=== PATIENT | male | born 1970 | race Caucasian/White ===

== ENCOUNTER 2017-11-17 07:16 | Inpatient (IN) | payer OTHER ==
[~2017-11-17] VITALS: Ht 182.9 cm; Wt 88.0 kg
[~2017-11-17 07:16] MED LIST: ACYCLOVIR 400400 M1 PO; ACYCLOVIR 400400 MG PO; AMOXICILLIN 50500 MG PO; BACTRIM; BACTRIM DS TAB1 EACH PO; CIPROFLOXACIN500 M1 PO; DOXYCYCLINE 10100 MG PO; IBUPROFEN 800800 MG PO; KEFLEX500 MG PO; NOHOMEMEDICATIONS; NORCO 5-325 TA1 EACH; NORCO 5-325 TA1 EACH PO; NORCO 7.5-3251 EACH PO; PERCOCET 5-3251 EACH PO; TRAMADOL 50 MG50 MG PO; VICODIN 5-5001 EACH PO; ZOVIRAX 5% CR2 G1 TP
[2017-11-17 07:44] VITALS: BP 117/74
[2017-11-17 08:04] LABS: INFLUENZA A ANTIGEN None Detected (None Detect); INFLUENZA B ANTIGEN None Detected (None Detect)
[2017-11-17 08:11] LABS: HEMOGLOBIN 16.3 gm/dL (14.0-18.0); MCHC 33.7 g/dL (28.0-37.0)
[2017-11-17 08:13] LABS: HEMATOCRIT 48.4 % (42.0-52.0); MCH 30.4 pg (26.0-34.0); MCV 90.2 fL (80.0-100.0); MPV 9.4 fl. (7.2-11.1); NUCLEATED RBCS 0 /100WBC; PLATELET COUNT* 144 thou/uL (150-400); RBC 5.36 mil/uL (4.50-6.00); RDW-CV 14.5 % (10.5-14.5); WBC 10.9 thou/uL (4.0-11.0)
[2017-11-17 08:19] LABS: CALCIUM 8.3 mg/dL (8.5-10.1); CREATININE 1.6 mg/dL (0.6-1.3); POTASSIUM 4.1 mmol/L (3.5-5.1)
[2017-11-17 08:23] LABS: ALBUMIN 3.1 g/dL (3.4-5.0); TOTAL PROTEIN 7.8 g/dL (6.4-8.2)
[2017-11-17 08:58] LABS: ABSOLUTE LYMPHOCYTES 0.4 thou/uL (0.8-5.3); ABSOLUTE MONOCYTES 0.2 thou/uL (0.0-1.2); ABSOLUTE NEUTROPHILS 10.2 thou/uL (1.6-8.1); PLATELET ESTIMATE ADEQUATE
--- NOTE | 2017-11-17 11:00 | NUR ---
PT GIVEN A SANDWICH AND APPLE JUICE. PT FINISHED FOOD AND IS NOW SLEEPING IN ROOM.
[2017-11-17 14:45] VITALS: BP 93/66
--- NOTE | 2017-11-17 15:21 | NUR ---
UNABLE TO COMPLETE BOARDED PT ASSESSMENT ON TIME DUE TO HIGH ACUITY OF OTHER PATIENTS.
[2017-11-17 16:25] LABS: AMP/METHAMP POSITIVE (Negative); BARBITURATES Negative (Negative); BENZODIAZEPINES Negative (Negative); COCAINE Negative (Negative); METHADONE Negative (Negative); OPIATES Negative (Negative); PCP Negative (Negative); THC POSITIVE (Negative)
[2017-11-17 16:30] LABS: URINE BLOOD NEGATIVE (Negative); URINE CLARITY CLOUDY; URINE COLOR YELLOW; URINE GLUCOSE-RANDOM NEGATIVE (Negative); URINE KETONES TRACE (Negative); URINE LEUKOCYTES-REFLEX NEGATIVE (Negative); URINE NITRITE-REFLEX NEGATIVE (Negative); URINE PROTEIN 1+ (Negative); URINE SPECIFIC GRAVITY >= 1.030 (1.005-1.030)
[2017-11-17 16:32] LABS: ICTOTEST (BILI CONFIRMATORY) Negative (Negative); URINE BILIRUBIN 2+ (Negative)
--- NOTE | 2017-11-17 17:00 | NUR ---
NOTIFIED DR ROGERS OF VQ RESULTS.
[2017-11-17 17:52] VITALS: BP 104/71
[2017-11-17 18:46] VITALS: BP 108/68
[2017-11-17 19:45] VITALS: BP 119/73
--- NOTE | 2017-11-17 20:00 | NUR ---
PT IN BED WATCHING TV. 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 VS OBTAINED, AFEBRILE. ROOM AIR SAT 94%. LIJ IVF INFUSING PER PUMP. HISTORY OBTIANED AND ASSESSMENT PERFORMED, SEE ADMIT NOTES. REFUSING SCDS. DR TO BE MESSAGED REGARDING VQ SCAN FINDINGS. SNACK GIVEN. CALL LITE IN EASY REACH, WILL CONTINUE TO MONITOR AND PROVIDE CARES NEEDED.
[2017-11-18] VITALS: BP 123/81
[2017-11-18 04:00] VITALS: BP 118/88
--- NOTE | 2017-11-18 07:03 | NUR ---
PT SLEPT WELL OVERNIGHT HE STATES, FEELING MUCH BETTER. PRODUCTIVE COUGH LEDBETTER THICK MUCOUS THIS MORNING, SPECIMEN OBTAINED TO SEND TO LAB. LIJ IVF INFUSED OVERNIGHT. DENIES PAIN OR PROBLEMS, ROOM AIR. NASAL SWAB MRSA SENT TO LAB PENDING, HX MRSA. SOLUMEDROL GIVEN ORDERED. RT TX GIVEN. LOVENOX GIVEN ORDERED. USING URINAL TO VOID TORI URINE. ABLE TO USE CALL LITE AND MAKE NEEDS KNOWN.
[2017-11-18 08:00] VITALS: BP 146/99
--- NOTE | 2017-11-18 10:11 | NUR ---
CM SPOKE TO THE PATIENT TO DISCUSS HOME SITUATIION, DISCHARGE PLANNING, AND TO INFORM OF THE ROLE OF CM. PATIENT ALERT, ORIENTED, AND INDEPENDENT WITH ADL'S. PATIENT IS HOMELESS. PATIENT STATES THAT HE STAYS 'WHERE EVER HE CAN'. PATIENT STATES THAT HE HAS 'SOME FRIENDS WHO HELP ME WHEN I NEED IT'. PATIENT OWNS 0 DME. PATIENT HAS NO HX OF HH OR SNF. PATIENT REQUEST ASSISTANCE WITH APPLYING FOR MEDICAID. CM CONTACTED [employer] AND A MESSAGE FOR [employer], AND FAXED HER THE PATIENTS FACESHEET. CM PROVIDED PATIENT A COMMUNITY RESOURCE LIST, PRESCRIPTION ASSSITANCE CARD, AND LIST OF SUBSTANCE ABUSE RESOURCES. CM WILL REMAIN AVAILABLE TO ASSIST AND FOLLOW NEEDED.
[2017-11-18 10:30] LABS: HEMATOCRIT 40.2 % (42.0-52.0); MCH 29.9 pg (26.0-34.0); MCHC 32.8 g/dL (28.0-37.0); MCV 91.2 fL (80.0-100.0); MPV 9.4 fl. (7.2-11.1); NUCLEATED RBCS 0 /100WBC; PLATELET COUNT* 121 thou/uL (150-400); RBC 4.41 mil/uL (4.50-6.00); RDW-CV 14.5 % (10.5-14.5); WBC 16.3 thou/uL (4.0-11.0)
[2017-11-18 10:32] LABS: HEMOGLOBIN 13.2 gm/dL (14.0-18.0)
[2017-11-18 10:44] LABS: CALCIUM 8.2 mg/dL (8.5-10.1); CREATININE 1.2 mg/dL (0.6-1.3); MAGNESIUM 1.5 mg/dL (1.8-2.4); PHOSPHORUS* 2.1 mg/dL (2.5-4.9)
[2017-11-18 10:56] LABS: ABSOLUTE LYMPHOCYTES 0.8 thou/uL (0.8-5.3); ABSOLUTE MONOCYTES 0.7 thou/uL (0.0-1.2); ABSOLUTE NEUTROPHILS 14.8 thou/uL (1.6-8.1); METAMYELOCYTES 1 %
[2017-11-18 10:57] LABS: HYPOCHROMASIA 1+; PLATELET ESTIMATE ADEQUATE
[2017-11-18 12:35] VITALS: BP 136/93
[2017-11-18] MEDS ORDERED: PRILOSEC 20 MG20 MG PO (13:08)
[2017-11-18] MEDS ORDERED: NICOTINE TRANSD21 M1 TRANSDERM (13:09)
[2017-11-18] MEDS ORDERED: LEVAQUIN 750 M750 MG PO (13:10)
[2017-11-18] MEDS ORDERED: PREDNISONE 10 M10 MG PO (13:18)
[2017-11-18 13:57] VITALS: BP 136/93
--- NOTE | 2017-11-18 14:28 | NUR ---
ASSUMED CARE THIS AM. A/O X 4, DENIES PAIN, UP AD GOLDEN. VITAL SIGNS STABLE, LABS REVIEWED WITH PATIENT AND PHYSICIAN. PATIENT ADAMANT ABOUT BEING DISCHARGED TODAY, INFORMED OF RISK BY THIS NURSE AND PHYSICIAN. DISCHARGE INSTRUCTIONS AND PRESCRIPTIONS DISCUSSED WITH AND GIVEN TO PATIENT, DENIES QUESTIONS AT THIS TIME. IV ACCESS TO LEFT EJ REMOVED WITHOUT INCIDENT, PERSONAL EFFECTS GATHERED AND ACCOUNTED FOR, IN COMPANY OF PATIENT. AMBULATED WITH STEADY GAIT TO MAIN ENTRANCE IN COMPANY OF THIS NURSE.
== END 2017-11-18 14:32 | disposition left against medical advice (07) | DRG 871 ==
LOC: M.ERS 07:16 → M.3W 09:43 → M.TBA-ER 09:43 → M.3W 18:15
PROVIDERS: Emergency Medicine Emergency Medical Services; ADMIT Internal Medicine
DX: A41.9 Sepsis, unspecified organism (principal); J96.01 Acute respiratory failure with hypoxia; J15.6 Pneumonia due to other Gram-negative bacteria; F17.210 Nicotine dependence, cigarettes, uncomplicated; F19.90 Other psychoactive substance use, unspecified, uncomplicated; Z88.2 Allergy status to sulfonamides; Z88.1 Allergy status to other antibiotic agents; Z79.899 Other long term (current) drug therapy; Z71.6 Tobacco abuse counseling; Z28.21 Immunization not carried out because of patient refusal

== ENCOUNTER 2018-02-12 11:25 | Emergency (ER) | payer OTHER ==
[~2018-02-12] VITALS: Ht 182.9 cm; Wt 90.7 kg
[~2018-02-12 11:25] MED LIST changes: +LEVAQUIN 750 M750 MG PO; +NICOTINE TRANSD21 M1 TRANSDERM; +PREDNISONE 10 M10 MG PO; +PRILOSEC 20 MG20 MG PO
[2018-02-12] MEDS ORDERED: PERCOCET PO ×2 (13:01→13:10)
[2018-02-12] MEDS ORDERED: ZPAK PO (13:25)
[2018-02-12] MEDS ORDERED: PROAIR HFA8.5 GM INH (13:25)
[2018-02-12 13:40] VITALS: BP 130/94
== END 2018-02-12 13:40 | disposition home or self-care (01) ==
LOC: M.ERS 11:25
DX: S22.41XA Multiple fractures of ribs, right side, initial encounter for closed fracture (principal); F17.210 Nicotine dependence, cigarettes, uncomplicated; Z88.1 Allergy status to other antibiotic agents; W18.39XA Other fall on same level, initial encounter; Y93.89 Activity, other specified; Y92.89 Other specified places as the place of occurrence of the external cause; Y99.8 Other external cause status

== ENCOUNTER 2019-09-30 04:14 | Emergency (ER) | payer OTHER ==
[~2019-09-30] VITALS: Ht 182.9 cm; Wt 90.7 kg
[~2019-09-30 04:14] MED LIST changes: +PERCOCET PO; +PROAIR HFA8.5 GM INH; +ZPAK PO
[2019-09-30] MEDS ORDERED: LISINOPRIL-HCT1 EAC2 PO (04:23)
[2019-09-30] MEDS ORDERED: LASIX 40 MG TAB40 MG PO (04:23)
[2019-09-30] MEDS ORDERED: DOXYCYCLINE 10100 MG PO (04:38)
[2019-09-30] MEDS ORDERED: TYLENOL WITH CO1 TA1 PO (04:38)
[2019-09-30 04:41] VITALS: BP 151/100
== END 2019-09-30 04:42 | disposition home or self-care (01) ==
LOC: M.ERS 04:14
DX: S61.011A Laceration without foreign body of right thumb without damage to nail, initial encounter (principal); L03.031 Cellulitis of right toe; F17.210 Nicotine dependence, cigarettes, uncomplicated; Z88.2 Allergy status to sulfonamides; Z88.8 Allergy status to other drugs, medicaments and biological substances; X58.XXXA Exposure to other specified factors, initial encounter; Y92.89 Other specified places as the place of occurrence of the external cause; Y93.89 Activity, other specified; Y99.0 Civilian activity done for income or pay

== ENCOUNTER 2019-10-04 19:13 | Emergency (ER) | payer OTHER ==
[~2019-10-04] VITALS: Ht 182.9 cm; Wt 90.7 kg
[~2019-10-04 19:13] MED LIST changes: +LASIX 40 MG TAB40 MG PO; +LISINOPRIL-HCT1 EAC2 PO; +TYLENOL WITH CO1 TA1 PO
[2019-10-04 20:36] LABS: ABSOLUTE BASOPHILS 0.2 thou/uL (0.0-0.2); ABSOLUTE EOSINOPHILS 0.1 thou/uL (0.0-0.7); ABSOLUTE LYMPHOCYTES 2.7 thou/uL (0.8-5.3); ABSOLUTE MONOCYTES 1.1 thou/uL (0.0-1.2); ABSOLUTE NEUTROPHILS 11.1 thou/uL (1.6-8.1); BASOPHILS 1.1 %; EOSINOPHILS 0.8 %; HEMATOCRIT 51.3 % (42.0-52.0); HEMOGLOBIN 17.2 gm/dL (14.0-18.0); LYMPHOCYTES 17.7 %; MCH 30.5 pg (26.0-34.0); MCHC 33.5 g/dL (28.0-37.0); MCV 91.3 fL (80.0-100.0); MONOCYTES 7.1 %; MPV 8.5 fl. (7.2-11.1); NUCLEATED RBCS 0 /100WBC; PLATELET COUNT* 228 thou/uL (150-400); POLYS 73.3 %; RBC 5.62 mil/uL (4.50-6.00); RDW-CV 14.5 % (10.5-14.5); WBC 15.2 thou/uL (4.0-11.0)
[2019-10-04 20:46] LABS: CREATININE 1.3 mg/dL (0.6-1.3); POTASSIUM 3.8 mmol/L (3.5-5.1)
[2019-10-04] MEDS ORDERED: IBU600 MG PO (21:11)
[2019-10-04] MEDS ORDERED: CLEOCIN HCL150 M1 PO (21:11)
[2019-10-04] MEDS ORDERED: ULTRAM 50MG TAB50 MG PO (21:27)
[2019-10-04 21:35] VITALS: BP 192/97
== END 2019-10-04 21:36 | disposition home or self-care (01) ==
LOC: M.ERS 19:13
PROVIDERS: Physician Assistant
DX: L02.511 Cutaneous abscess of right hand (principal); L03.011 Cellulitis of right finger; I10 Essential (primary) hypertension; F17.210 Nicotine dependence, cigarettes, uncomplicated; Z88.1 Allergy status to other antibiotic agents; Z88.2 Allergy status to sulfonamides; Z87.01 Personal history of pneumonia (recurrent)

== ENCOUNTER 2020-07-27 18:18 | Emergency (ER) | payer OTHER ==
[~2020-07-27] VITALS: Ht 182.9 cm; Wt 90.7 kg
[~2020-07-27 18:18] MED LIST changes: +CLEOCIN HCL150 M1 PO; +IBU600 MG PO; +ULTRAM 50MG TAB50 MG PO
[2020-07-27] MEDS ORDERED: SPIRONOLACTONE25 MG PO (18:37)
[2020-07-27] MEDS ORDERED: VENTOLIN HFA 1818 GM INH (18:37)
[2020-07-27] MEDS ORDERED: CARVEDILOL3.125 MG PO (18:38)
[2020-07-27 20:42] LABS: HEMATOCRIT 50.8 % (42.0-52.0); NUCLEATED RBCS 0 /100WBC
[2020-07-27 20:44] LABS: ABSOLUTE BASOPHILS 0.1 thou/uL (0.0-0.2); ABSOLUTE EOSINOPHILS 0.1 thou/uL (0.0-0.7); ABSOLUTE LYMPHOCYTES 2.6 thou/uL (0.8-5.3); ABSOLUTE MONOCYTES 1.4 thou/uL (0.0-1.2); ABSOLUTE NEUTROPHILS 10.4 thou/uL (1.6-8.1); BASOPHILS 0.8 %; EOSINOPHILS 0.5 %; HEMOGLOBIN 17.4 gm/dL (14.0-18.0); LYMPHOCYTES 17.6 %; MCH 33.2 pg (26.0-34.0); MCHC 34.3 g/dL (28.0-37.0); MCV 96.9 fL (80.0-100.0); MONOCYTES 9.9 %; MPV 8.7 fl. (7.2-11.1); PLATELET COUNT* 150 thou/uL (150-400); POLYS 71.2 %; RBC 5.24 mil/uL (4.50-6.00); WBC 14.6 thou/uL (4.0-11.0)
[2020-07-27 21:12] LABS: ALBUMIN 3.1 g/dL (3.4-5.0); CALCIUM 8.4 mg/dL (8.5-10.1); CREATININE 1.3 mg/dL (0.6-1.3); POTASSIUM 3.8 mmol/L (3.5-5.1); TOTAL BILIRUBIN 1.3 mg/dL (<0.1-1.0); TOTAL PROTEIN 7.2 g/dL (6.4-8.2)
[2020-07-27] MEDS ORDERED: AZITHROMYCIN 2250 MG PO (21:26)
[2020-07-27] MEDS ORDERED: PREDNISONE50 MG PO (21:26)
[2020-07-27 21:39] VITALS: BP 125/80
--- NOTE | 2020-07-28 12:15 | EKG ---
[place] [address] ELECTROCARDIOGRAM REPORT Name: JACOBO BRIGHT Room: [facility]#: [id number] Admission: 07/27/20 Attend Phys: Discharge: 07/27/20 Date of : 66 Date of Service: 07/27/201943 Report #: [id number] THIS REPORT FOR: //name// [facility] ED Test Date: 2020-07-27 Test Time: 19:44:00 Pat Name: JACOBO BRIGHT Department: Room: Gender: Reporting Manager: [place] : 1970 Requested By: Timoteo Maguire Order Number: [id number] MD: Eliel Carter Measurements Intervals [place] Rate: 97 P: 25 MN: 149 QRS: -169 QRSD: 116 T: -20 QT: 358 QTc: 455 Interpretive Statements Sinus rhythm Right atrial enlargement IRBBB and LPFB Baseline wander in lead(s) II,III,aVF No previous ECG available for comparison Electronically Signed On 07-28-2020 12:14:59 CDT by Eliel Carter [email or web address] <ELECTRONICALLY SIGNED> By: Eliel Carter MD, FACC 07/28/20 1214 43 43 Eliel Carter MD, [facility] /EPI
== END 2020-07-27 21:41 | disposition home or self-care (01) ==
LOC: M.ERS 18:18
PROVIDERS: Physician Assistant
DX: J40 Bronchitis, not specified as acute or chronic (principal); Z20.828 Contact with and (suspected) exposure to other viral communicable diseases; I10 Essential (primary) hypertension; Z88.1 Allergy status to other antibiotic agents; Z88.2 Allergy status to sulfonamides; Z87.01 Personal history of pneumonia (recurrent)

== ENCOUNTER 2020-08-26 17:20 | Emergency (ER) | payer OTHER ==
[~2020-08-26] VITALS: Ht 182.9 cm; Wt 90.7 kg
[~2020-08-26 17:20] MED LIST changes: +AZITHROMYCIN 2250 MG PO; +CARVEDILOL3.125 MG PO; +PREDNISONE50 MG PO; +SPIRONOLACTONE25 MG PO; +VENTOLIN HFA 1818 GM INH
[2020-08-26 17:27] VITALS: BP 155/114
[2020-08-26] MEDS ORDERED: SPIRIVA18 MCG INH (17:32)
[2020-08-26] MEDS ORDERED: IBUPROFEN 800800 MG PO (18:41)
[2020-08-26] MEDS ORDERED: HYDROCODON-ACE1 EAC7 PO (18:41)
== END 2020-08-26 18:54 | disposition home or self-care (01) ==
LOC: M.ERS 17:20
DX: S29.8XXA Other specified injuries of thorax, initial encounter (principal); I10 Essential (primary) hypertension; F17.210 Nicotine dependence, cigarettes, uncomplicated; Z87.01 Personal history of pneumonia (recurrent); Z88.2 Allergy status to sulfonamides; Z88.1 Allergy status to other antibiotic agents; X50.9XXA Other and unspecified overexertion or strenuous movements or postures, initial encounter; Y93.89 Activity, other specified; Y92.89 Other specified places as the place of occurrence of the external cause; Y99.8 Other external cause status

== ENCOUNTER 2020-09-03 09:27 | Emergency (ER) | payer OTHER ==
[~2020-09-03] VITALS: Ht 182.9 cm; Wt 90.7 kg
[~2020-09-03 09:27] MED LIST changes: +HYDROCODON-ACE1 EAC7 PO; +SPIRIVA18 MCG INH
[2020-09-03] MEDS ORDERED: CLEOCIN HCL300 MG PO (10:18)
[2020-09-03] MEDS ORDERED: PREDNISONE 20 M20 M1 PO (10:18)
[2020-09-03] MEDS ORDERED: TRIAMCINOLONE A15 G1 TOP (10:18)
[2020-09-03] MEDS ORDERED: KEFLEX500 M1 PO (10:18)
[2020-09-03] MEDS ORDERED: LISINOPRIL40 MG PO (10:18)
[2020-09-03 10:25] VITALS: BP 150/102
== END 2020-09-03 10:28 | disposition home or self-care (01) ==
LOC: M.ERS 09:27
DX: L30.9 Dermatitis, unspecified (principal); L98.9 Disorder of the skin and subcutaneous tissue, unspecified; I10 Essential (primary) hypertension; Z76.0 Encounter for issue of repeat prescription; F17.210 Nicotine dependence, cigarettes, uncomplicated; Z88.2 Allergy status to sulfonamides; Z88.1 Allergy status to other antibiotic agents